=== PATIENT | male | born 1985 | race Caucasian/White ===

== ENCOUNTER → 2016-06-30 | Outpatient (CLI) | payer BC ==
[~2016-06-30] MED LIST: RXC/5 PO; TAMS0.4C38 PO; TRAM-10 PO; VARE1PAK15 PO
--- NOTE | 2016-06-30 15:32 | DIAGNOSTIC IMAGING REPORT ---
KUB CLINICAL HISTORY: N20.0 [id number] COMPARISON STUDY: 11/07/2014 FINDINGS: The renal shadows are partially secured by overlying bowel gas and fecal material. There is no pathologic bowel dilatation. There are punctate calcifications project over each renal shadow suspicious for tiny calculi. IMPRESSION: 1. Bilateral nephrolithiasis 2. No evidence of pathologic bowel dilatation. Electronically signed by: Constantine Omer M.D. 06/30/2016 3:30 PM Dictated Date/Time: 06/30/2016 3:29 PM
== END | disposition home or self-care (01) ==
LOC: C.RAD 15:03
PROVIDERS: ATTEND Nurse Practitioner Adult Health
DX: N20.0 Calculus of kidney (principal)

== ENCOUNTER 2016-07-04 05:27 | Emergency (ER) | payer BC ==
[~2016-07-04] VITALS: Ht 182.9 cm; Wt 85.6 kg
[2016-07-04 05:33] VITALS: Ht 182.9 cm; Wt 85.6 kg
[2016-07-04] MEDS ORDERED: OXYCODONE IR HOME PACK PO ONE (06:00)
[2016-07-04 06:16] VITALS: BP 135/82; PULSE 68; TEMP 36.9; O2SAT 98
--- NOTE | 2016-07-05 04:08 | EMERGENCY ROOM VISIT NOTE ---
History First contact with patient: 05:38 Chief Complaint: KIDNEY STONE Stated Complaint: KIDNEY STONE History of Present Illness The patient is a 31 year old male who presents to the Emergency Room with complaints of right-sided kidney stone first identified 2 days ago on an outpatient CT scan. The patient states he had evaluation by his primary care physician last week, and ultimately was found to have a ureteral calculi. The patient was given a course of oxycodone and had been doing well on the medication. He finished his last dose of medication yesterday, and has return of his pain. The patient has an appointment with urology in several hours, and will be keeping this appointment. He has not had fever or chills. His urine has reportedly been without infection. The patient is primarily here for pain control until he can see urology later today. He rates his discomfort a 7/10. Review of Systems More than 10 systems were reviewed and otherwise negative with the exception of history of present illness. Past Medical/Surgical History Medical Problems: (1) Hematuria (2) Hydronephrosis Family History Heart disease Social History Smoking Status: Current Every Day Smoker Drug Use: none Housing Status: lives with significant other Current/Historical Medications No Active Prescriptions or Reported Meds Allergies Coded Allergies: Ketorolac (Verified Allergy, Unknown, 07/04/16) Penicillins (Verified Allergy, Unknown, "MOM SEVERELY ALLERGIC" WON'T TAKE , 07/04/16) Physical Exam Vital Signs Date Time Temp Pulse Resp B/P Pulse Ox O2 Delivery O2 Flow Rate FiO2 07/04/16 06:16 36.9 68 18 135/82 98 Room Air 07/04/16 05:33 36.4 85 20 160/90 97 Room Air Pain Rating (0-10): 5.0 Physical Exam VITALS: Vitals are noted on the nurse's note and reviewed by myself. Vital signs stable. GENERAL: Well-developed, well-nourished, white male, who is in no acute distress and resting comfortably. Patient is cooperative with the examination. HEAD: Normocephalic atraumatic. NECK: Supple without nuchal rigidity. No lymphadenopathy. No thyromegaly. Cervical spine is nontender. HEART: Regular rate and rhythm without murmurs gallops or rubs. LUNGS: Clear to auscultation bilaterally without wheezes, rales or rhonchi. No retractions or accessory muscle use. ABDOMEN: Positive normal bowel sounds x 4. Soft, nontender, without masses or organomegaly. No guarding or rebound tenderness. No CVA tenderness. Medical Decision & Procedures ED Course Physical exam and history were performed. Nursing notes and EMR were reviewed. Patient appears to have reports of a right ureteral calculi than an outpatient CT. He was able to review the CT report through the [facility] system, and the patient did have a right sided proximal 4 mm stone. I discussed WITH the patient, and he had been doing well on his oxycodone at home until he ran out of the medication. He does have an appointment later today, and I feel that he should keep this appointment. The patient will be given a home pack of oxycodone as this should provide ample medication to make it to later this afternoon. The patient was pleased with this and voiced understanding. He was otherwise invited back to the ER with any new, worsening, or concerning symptoms. The chart was completed utilizing [employer] Speech Voice Recognition Software. Grammatical errors, random word insertions, pronoun errors, and incomplete sentences are an occasional consequence of this system due to software limitations, ambient noise, and hardware issues. Any formal questions or concerns about the content, text, or information contained within the body of this dictation should be directly addressed to the provider for clarification. . Medical Decision Differential diagnosis: Etiologies such as renal colic, appendicitis, diverticulitis, mesenteric ischemia, aortic pathology, infections, inflammatory bowel disease, PUD, biliary pathology, UTI, as well as others were entertained. [place] Drug Monitoring Program Search Results: patient reviewed within database, no issues identified Impression Primary Impression: Ureteral calculi Departure Information Dispostion Home / Self-Care Condition GOOD Prescriptions No Active Prescriptions or Reported Meds Forms HOME CARE DOCUMENTATION FORM, IMPORTANT VISIT INFORMATION Patient Instructions My [facility] Additional Instructions You were seen and evaluated today on an emergency basis only. This is not a substitute for, or an effort to provide, complete comprehensive medical care. It is not possible to recognize and treat all injuries or illnesses in a single emergency department visit. For this reason it is recommended that you followup with Urology as scheduled today for ongoing care and evaluation. Oxycodone (OxyIR) 5mg (homepack): Take ONE pill every SIX hours for breakthrough pain. Avoid alcohol, operating machinery or dangerous equipment, working on ladders or roofs, DRIVING, or situations where being under the influence may be dangerous. It is recommended to use an flys-fdp-sgpnufy stool softener such as Colace, 100mg twice daily while taking this medication to avoid constipation. You are welcome to return to the emergency department anytime with new, worsening, or concerning symptoms.
== END 2016-07-04 06:18 | disposition home or self-care (01) ==
LOC: C.EDB 05:28
DX: N20.1 Calculus of ureter (principal); F17.200 Nicotine dependence, unspecified, uncomplicated

== ENCOUNTER → 2016-07-04 | Outpatient (CLI) | payer BC ==
--- NOTE | 2016-07-04 16:15 | DIAGNOSTIC IMAGING REPORT ---
KUB CLINICAL HISTORY: RIGHT URETERAL CALCULUS COMPARISON STUDY: 06/30/2016, outside CT scan dated 07/01/2016 FINDINGS: There is no pathologic bowel dilatation. There is a punctate right renal calculus. There is a new 2.5 mm right pelvic basin calcification, likely representing distal migration of the previously identified distal right ureteral calculus. IMPRESSION: 1. Right-sided nephrolithiasis 2. No evidence of pathologic bowel dilatation 3. 2.5 mm right pelvic basin calcification, likely representing a distal right ureteral calculus Electronically signed by: Constantine Omer M.D. 07/04/2016 4:13 PM Dictated Date/Time: 07/04/2016 4:11 PM
== END | disposition home or self-care (01) ==
LOC: C.RADBC 15:49
PROVIDERS: ATTEND Nurse Practitioner Family
DX: N20.2 Calculus of kidney with calculus of ureter (principal)

== ENCOUNTER → 2016-07-07 | Outpatient (CLI) | payer BC ==
--- NOTE | 2016-07-07 12:52 | DIAGNOSTIC IMAGING REPORT ---
KUB CLINICAL HISTORY: N20.0 Nephrolithiasis COMPARISON STUDY: 07/04/2016 FINDINGS: Interval passage of the distal right ureteral calculus. Punctate and/or fine nephrocalcinosis within the kidneys persists. Bowel pattern is nonobstructive. IMPRESSION: Interval passage of the previously described distal right ureteral calculus. 2. Unchanging punctate nephrocalcinosis. Electronically signed by: Osvaldo Montano M.D. 07/07/2016 12:50 PM Dictated Date/Time: 07/07/2016 12:49 PM
== END | disposition home or self-care (01) ==
LOC: C.RADBC 12:33
PROVIDERS: ATTEND Nurse Practitioner Family
DX: N20.0 Calculus of kidney (principal); E83.59 Other disorders of calcium metabolism; N29 Other disorders of kidney and ureter in diseases classified elsewhere

== ENCOUNTER → 2016-07-08 | Day surgery (SDC) | payer BC ==
[2016-07-05 12:48] LABS: BASO % 0.2 %; BASO ABS # 0.02 K/uL (0-0.2); COMPLETE YES; EOS % 3.1 %; HEMATOCRIT 43.5 % (42-52); IG% 0.1 %; LYMPH % 27.8 %; LYMPH ABS # 2.25 K/uL (1.2-3.4); MEAN CELL VOLUME 88.4 fL (80-100); MEAN CORPUSCULAR HEMOGLOBIN 31.5 pg (25-34); MEAN CORPUSCULAR HGB CONC 35.6 g/dl (32-36); MEAN PLATELET VOLUME 10.4 fL (7.4-10.4); NEUT % 59.8 %; PLATELET COUNT 231 K/uL (130-400); RED BLOOD COUNT 4.92 M/uL (4.7-6.1); WHITE BLOOD COUNT 8.08 K/uL (4.8-10.8)
[2016-07-05 13:11] LABS: BLOOD UREA NITROGEN 10 mg/dl (7-18); BUN/CREATININE RATIO 11.8 (10-20); CALCIUM 9.2 mg/dl (8.5-10.1); CARBON DIOXIDE 29 mmol/L (21-32); CHLORIDE 105 mmol/L (98-107); CREATININE 0.82 mg/dl (0.60-1.40); GLUCOSE 110 mg/dl (70-99); POTASSIUM 4.1 mmol/L (3.5-5.1); SODIUM 139 mmol/L (136-145)
--- NOTE | 2016-07-05 13:52 | DIAGNOSTIC IMAGING REPORT ---
CHEST 2 VIEWS ROUTINE CLINICAL HISTORY: Preoperative evaluation. Nephrolithiasis. COMPARISON STUDY: Chest radiograph October 06, 2014. FINDINGS: Lung volumes are normal. There is no pneumothorax or pleural effusion. There is no evidence of pulmonary edema. Cardiomediastinal silhouette is unremarkable. The appearance of the chest is unchanged. IMPRESSION: No acute cardiopulmonary findings. Electronically signed by: Keaton Akhtar M.D. 07/05/2016 1:51 PM Dictated Date/Time: 07/05/2016 1:50 PM
[2016-07-07 12:37] VITALS: Ht 182.9 cm; Wt 84.1 kg
[~2016-07-08] VITALS: Ht 182.9 cm; Wt 84.1 kg
[~2016-07-08] MED LIST changes: +CIPROFLOXACIN 400MG / D5W IV SCH; +LACTATED RINGER'S 1000ML 1,000 ML IV SCH
== END ==
LOC: EDSTATUS 12:15 → C.PAT 12:49
PROVIDERS: ATTEND Urology
DX: N20.0 Calculus of kidney (principal)

== ENCOUNTER 2016-10-27 07:44 | Emergency (ER) | payer BC ==
[~2016-10-27] VITALS: Ht 182.9 cm; Wt 85.9 kg
[2016-10-27 07:46] VITALS: TEMP 36.6; Ht 182.9 cm; Wt 85.9 kg
[2016-10-27] MEDS ORDERED: TAMS0.4C38 PO (08:04)
[2016-10-27] MEDS ORDERED: RXC/5 PO (08:04)
[2016-10-27] MEDS ORDERED: VARE1PAK15 PO (08:04)
[2016-10-27 08:30] LABS: BASO % 0.2 %; BASO ABS # 0.01 K/uL (0-0.2); COMPLETE YES; EOS % 2.9 %; HEMATOCRIT 48.5 % (42-52); IG% 0.3 %; LYMPH % 24.9 %; LYMPH ABS # 1.64 K/uL (1.2-3.4); MEAN CELL VOLUME 90.1 fL (80-100); MEAN CORPUSCULAR HEMOGLOBIN 31.2 pg (25-34); MEAN CORPUSCULAR HGB CONC 34.6 g/dl (32-36); MEAN PLATELET VOLUME 10.3 fL (7.4-10.4); MONO % 11.7 %; PLATELET COUNT 240 K/uL (130-400); RED BLOOD COUNT 5.38 M/uL (4.7-6.1); WHITE BLOOD COUNT 6.59 K/uL (4.8-10.8)
[2016-10-27 08:44] LABS: URINE APPEARANCE CLEAR (CLEAR); URINE BILIRUBIN NEG (NEG); URINE COLOR YELLOW; URINE NITRITE NEG (NEG); URINE PH 7.5 (4.5-7.5); URINE SPECIFIC GRAVITY 1.016 (1.000-1.030); UROBILINOGEN NEG (NEG); ZZUR CULT IF INDIC CLEAN CATCH NO
[2016-10-27 08:46] LABS: CALCIUM 9.7 mg/dl (8.5-10.1); CREATININE 0.87 mg/dl (0.60-1.40); POTASSIUM 3.7 mmol/L (3.5-5.1)
[2016-10-27 08:50] LABS: MANUAL MICROSCOPIC REQUIRED? NO; REVIEW REQ? NO
--- NOTE | 2016-10-27 09:22 | DIAGNOSTIC IMAGING REPORT ---
KUB CLINICAL HISTORY: 31 years-old Male presenting with right flank pain. TECHNIQUE: Single supine view of the abdomen was obtained. COMPARISON: 07/07/2016. FINDINGS: Calculi in the right kidney again evident. No calculi evident in the left kidney. No calcification along the course of the ureters. Phlebolith noted in the pelvis as well as calcifications in the right seminal vesicle. Nonobstructive bowel gas pattern. Osseous structures normal. IMPRESSION: 1. Unchanged right nephrolithiasis. Electronically signed by: Odell Thornton M.D. 10/27/2016 9:20 AM Dictated Date/Time: 10/27/2016 9:17 AM
[2016-10-27] MEDS ORDERED: TRAM-10 PO (09:47)
--- NOTE | 2016-10-27 09:48 | EMERGENCY ROOM VISIT NOTE ---
ED Visit Note First contact with patient: 07:51 CHIEF COMPLAINT: Right flank pain, right kidney stone HISTORY OF PRESENT ILLNESS: This 31-year-old male patient presents to the emergency department planing of right-sided kidney stone, which has been present for several weeks. The patient was seen by his PCP last week, and had a VT scan of his abdomen ordered and completed on Monday. Per the patient, the CT scan did show several kidney stones, the largest of which was 3 mm. The patient does have history of kidney stones, and states he was last seen 3 months ago regarding them. He states he had been scheduled at that time to see urology for lithotripsy, however passed the stone before lithotripsy was performed. The patient states he had received a prescription for oxycodone 5 mg , however was given 30 pills by his PCP. The patient states he is conjure all of these pills since last week. He presents today for worsening pain, and states he ran out of his oxycodone, so was hoping to get a refill for this prescription. Patient states he attempted to contact his PCP to refill them escutcheon yesterday, however has not her back. The patient states the pain is severe, rates it 8/10. The patient is currently taking Flomax daily per his PCP. The patient reports he does have an appointment scheduled with urology on Monday, however states he does not feel that he will be able to make it until then. The patient was on his way to work in [employer] this morning, and did come to the emergency department because he states the pain has been unbearable. The patient denies fevers, chills, nausea, vomiting, abdominal pain , body aches, other associated symptoms. He states the pain he is experiencing is in his right mid to low back, and radiates to his right testicle. The patient states he did take ibuprofen this morning at 5:30, however has not experienced relief from his pain. REVIEW OF SYSTEMS: A 10-system review of systems was performed with positives and pertinent negatives listed in the history of present illness. All other systems were reviewed and are negative. ALLERGIES: Toradol. The patient reports allergy to penicillin, however he has not taken this medication. He states his mother is severely allergic so he will not take the antibiotic. MEDICATIONS: Oxycodone, Flomax PMH: Kidney stones SOCIAL HISTORY: The patient lives locally with his family. He admits to smoking one pack cigarettes per day. The patient denies drug or alcohol use. PHYSICAL EXAM: VITALS: Vitals are noted on the nurse's note and reviewed by myself. Vital signs stable. GENERAL: 31-year-old male, in no acute distress, sitting comfortably in a chair in room B-9. Nondiaphoretic, well-developed well-nourished. SKIN: The skin was without rashes, erythema, edema, or bruising. There is no tenting of the skin. Capillary reflex less than 2 seconds. HEAD: Normocephalic atraumatic. NECK: Supple without nuchal rigidity. No lymphadenopathy. No thyromegaly. Cervical spine is nontender. No JVD. HEART: Regular rate and rhythm without murmurs gallops or rubs. LUNGS: Clear to auscultation bilaterally without wheezes, rales or rhonchi. No dullness to percussion. No retractions or accessory muscle use. ABDOMEN: Positive bowel sounds x 4. Normal tympanic percussion. Soft, nontender, without masses or organomegaly. Del Cid sign negative. No guarding or rebound tenderness. No CVA tenderness bilaterally. MUSCULOSKELETAL: No muscle atrophy, erythema, or edema noted. Full range of motion without joint tenderness in all extremities. No tenderness to palpation. Normal gait. Strength 5/5 throughout. NEURO: Patient was alert and oriented to person place and time. Normal sensation to light and sharp touch. Deep tendon reflexes 2+ throughout. No focal neurological deficits. RADIOLOGY: FINDINGS: Calculi in the right kidney again evident. No calculi evident in the left kidney. No calcification along the course of the ureters. Phlebolith noted in the pelvis as well as calcifications in the right seminal vesicle. Nonobstructive bowel gas pattern. Osseous structures normal. IMPRESSION: 1. Unchanged right nephrolithiasis. EMERGENCY DEPARTMENT COURSE: The patient was seen and evaluated as above. I did consult PDMP online and noted pt. had been given a prescription for 30 oxycodone last week. Labs were ordered and showed no leukocytosis, thrombocytopenia, or concerning anemia. Renal function was normal and electrolytes were normal. UA without hematuria, or other abnormal findings. KUB ordered and showed stone within the right kidney, but no obvious stone in the ureter. I discussed discharge instructions with the patient and encouraged him to follow-up with his PCP and urology at his regular appointment. The patient was discharged home in good condition. MDM: The patient presented with right flank pain. He does report history of renal lithiasis. I did consider following etiology strain the course of his care: Nephrolithiasis, hydronephrosis, urinary tract infection, pyelonephritis, renal artery embolus, coronary liver nephritis, cholecystitis, cholelithiasis, IBD, pyelonephrosis, urinary tract obstruction, malignancy, and others. Based on the patient's previous workup and symptoms at this time, I suspect colicky pain related to the patient's renal stone. I did encourage the patient to follow up outpatient with urology at his regularly scheduled appointment. DIAGNOSIS: Renal lithiasis, right flank pain DISCHARGE INSTRUCTIONS & TREATMENT: X-ray in the emergency department did show a kidney stone, however this was nonobstructing and not in the ureter. Please follow-up with urology your regularly scheduled appointment on Monday for further evaluation and management of the stone. Please follow-up with your PCP for ongoing prescriptions for pain medication. For pain control, you can use the following dski-cad-pfkqwaz medicines (if >12 yo): - Extra strength (500mg/tab) Tylenol (acetaminophen) 2 tabs every 6-8 hours as needed. Do not exceed 6 tablets in a 24 hour period. Avoid taking more than 3 grams (3000 mg) of Tylenol per day. This includes any other sources of acetaminophen you may take on a regular basis. - Regular strength (200 mg/tab) Advil (ibuprofen) 2-3 tabs every 4-6 hours as needed. Do not exceed a dose of 3200 mg per day. You have been prescribed Ultram to be used for pain control. Take 1 tablets every 8 hours as needed for pain. This is a narcotic medication. You cannot drive or consume alcohol while on this medicine. This medicine should only be used for pain that cannot be controlled with qcne-wqp-[id number] pain medicines. Please return to the emergency department for worsening symptoms, including pain , blood in your urine, abdominal pain, fevers, chills, nausea, vomiting, or other concerning symptoms. Problem List Medical Problems: (1) Hematuria Status: Resolved (2) Hydronephrosis Status: Resolved Current/Historical Medications Scheduled Tamsulosin Hcl (Flomax), 0.4 MG PO DAILY Varenicline Tartrate (Chantix Starting Month Pa), 1 MG PO AMPM Scheduled PRN Oxycodone HCl (Oxycodone HCl), 5 MG PO Q4 PRN for Pain Tramadol (Ultram), 50 MG PO Q8H PRN for Pain Allergies Coded Allergies: Ketorolac (Verified Allergy, Unknown, HIVES, 07/07/16) Penicillins (Verified Allergy, Unknown, "MOM SEVERELY ALLERGIC" WON'T TAKE , 07/04/16) Vital Signs Date Time Temp Pulse Resp B/P (MAP) Pulse Ox O2 Delivery O2 Flow Rate FiO2 10/27/16 10:03 88 17 149/97 100 10/27/16 07:46 36.6 101 18 166/98 99 Room Air Laboratory Results 10/27/16 08:15 Red Blood Count 5.38, Mean Corpuscular Volume 90.1, Mean Corpuscular Hemoglobin 31.2, Mean Corpuscular Hemoglobin Concent 34.6, Mean Platelet Volume 10.3, Neutrophils (%) (Auto) 60.0, Lymphocytes (%) (Auto) 24.9, Monocytes (%) (Auto) 11.7, Eosinophils (%) (Auto) 2.9, Basophils (%) (Auto) 0.2, Neutrophils # (Auto ) 3.96, Lymphocytes # (Auto) 1.64, Monocytes # (Auto) 0.77, Eosinophils # (Auto ) 0.19, Basophils # (Auto) 0.01 10/27/16 08:15 Test 10/27/16 08:15 10/27/16 08:30 White Blood Count 6.59 K/uL (4.8-10.8) Red Blood Count 5.38 M/uL (4.7-6.1) Hemoglobin 16.8 g/dL (14.0-18.0) Hematocrit 48.5 % (42-52) Mean Corpuscular Volume 90.1 fL (80-100) Mean Corpuscular Hemoglobin 31.2 pg (25-34) Mean Corpuscular Hemoglobin Concent 34.6 g/dl (32-36) Platelet Count 240 K/uL (130-400) Mean Platelet Volume 10.3 fL (7.4-10.4) Neutrophils (%) (Auto) 60.0 % Lymphocytes (%) (Auto) 24.9 % Monocytes (%) (Auto) 11.7 % Eosinophils (%) (Auto) 2.9 % Basophils (%) (Auto) 0.2 % Neutrophils # (Auto) 3.96 K/uL (1.4-6.5) Lymphocytes # (Auto) 1.64 K/uL (1.2-3.4) Monocytes # (Auto) 0.77 K/uL (0.11-0.59) Eosinophils # (Auto) 0.19 K/uL (0-0.5) Basophils # (Auto) 0.01 K/uL (0-0.2) RDW Standard Deviation 42.4 fL (36.4-46.3) RDW Coefficient of Variation 12.9 % (11.5-14.5) Immature Granulocyte % (Auto) 0.3 % Immature Granulocyte # (Auto) 0.02 K/uL (0.00-0.02) Anion Gap 6.0 mmol/L (3-11) Est Creatinine Clear Calc Drug Dose 132.6 ml/min Estimated GFR () 131.4 Estimated GFR (Non- 113.4 BUN/Creatinine Ratio 11.0 (10-20) Calcium Level 9.7 mg/dl (8.5-10.1) Urine Color YELLOW Urine Appearance CLEAR (CLEAR) Urine pH 7.5 (4.5-7.5) Urine Specific [place] 1.016 (1.000-1.030) Urine Protein NEG (NEG) Urine Glucose (UA) NEG (NEG) Urine Ketones NEG (NEG) Urine Occult Blood NEG (NEG) Urine Nitrite NEG (NEG) Urine Bilirubin NEG (NEG) Urine Urobilinogen NEG (NEG) Urine Leukocyte Esterase NEG (NEG) Departure Information Impression Primary Impression: Renal lithiasis Additional Impression: Right flank pain Dispostion Home / Self-Care Condition GOOD Prescriptions Tramadol (Ultram) 50 Mg Tab 50 MG PO Q8H Y for Pain, #6 TAB Prov: Lesley Curtis PA-C 10/27/16 Referrals Fito Palacios M.D. (PCP) Patient Instructions ED Stone Renal W Colic, My [facility] Additional Instructions X-ray in the emergency department did show a kidney stone, however this was nonobstructing and not in the ureter. Please follow-up with urology your regularly scheduled appointment on Monday for further evaluation and management of the stone. Please follow-up with your PCP for ongoing prescriptions for pain medication. For pain control, you can use the following ukar-quj-lkhifve medicines (if >12 yo): - Extra strength (500mg/tab) Tylenol (acetaminophen) 2 tabs every 6-8 hours as needed. Do not exceed 6 tablets in a 24 hour period. Avoid taking more than 3 grams (3000 mg) of Tylenol per day. This includes any other sources of acetaminophen you may take on a regular basis. - Regular strength (200 mg/tab) Advil (ibuprofen) 2-3 tabs every 4-6 hours as needed. Do not exceed a dose of 3200 mg per day. You have been prescribed Ultram to be used for pain control. Take 1 tablets every 8 hours as needed for pain. This is a narcotic medication. You cannot drive or consume alcohol while on this medicine. This medicine should only be used for pain that cannot be controlled with poxo-upt-eusddsl pain medicines. Please return to the emergency department for worsening symptoms, including pain , blood in your urine, abdominal pain, fevers, chills, nausea, vomiting, or other concerning symptoms. Work Instructions Return To Work: 1 day Problem Qualifiers
[2016-10-27 10:03] VITALS: BP 149/97; PULSE 88; O2SAT 100
== END 2016-10-27 10:00 | disposition home or self-care (01) ==
LOC: C.EDB 07:46
DX: N20.0 Calculus of kidney (principal); R10.9 Unspecified abdominal pain; Z87.442 Personal history of urinary calculi; F17.210 Nicotine dependence, cigarettes, uncomplicated